=== PATIENT | male | born 1980 | race Caucasian/White ===

== ENCOUNTER 2017-02-25 07:24 | Inpatient (IN) | payer BC ==
[~2017-02-25] VITALS: Ht 185.4 cm; Wt 85.0 kg
[2017-02-25] VITALS (7 sets, daily range): BP systolic 117–138; BP diastolic 68–88; PULSE 84–110; RESP 18–28; TEMP 98.7–99.8; O2SAT 98–99
[2017-02-25] MEDS ORDERED: SODIUM CHLOR 0.9% 1000 ML INJ 1,000 ML IV ONE ×2 (07:45→11:00)
--- NOTE | 2017-02-25 07:55 | PD ---
HPI Chief Complaint: Oral / Dental Pain or Problem Time Seen by Provider: 07:38 Travel History International Travel<30 days: No Contact w/Intl Traveler<30days: No Traveled to known affect area: No History of Present Illness HPI 36 y/o male presents with swelling to his lower lip and redness down his chin with general ill feeling over the past couple of days. He states that he used IV drugs and he thinks last time was about 6 months ago. He states that he uses ecstasy more regularly. He states that the last time he followed physician was about 6 months ago when his dad who is a server cashier called in something for his arm. He denies any other concurrent complaints at this time but is a poor historian. PFSH Past Medical History Diminished Hearing: No Medical other: Yes (TMJ 2014, IV DRUG USE) Immunizations Current: No Tetanus Vaccination: Unknown Influenza Vaccination: Yes Past Surgical History Surgical History: No Previous Surgery Social History Alcohol Use: Yes Tobacco Use: Yes Substance Use: Yes (IV DRUG USE- HEROIN, COCAINE , MARIJUANA ) Allergies-Medications (Allergen,Severity, Reaction): Coded Allergies: Penicillins (Verified Allergy, Unknown, hives , 02/25/17) Reported Meds & Prescriptions Reported Meds & Active Scripts Active No Active Prescriptions or Reported Medications Review of Systems Except as stated in HPI: all other systems reviewed are Neg Physical Exam Narrative GENERAL: Well-nourished, well-developed patient. SKIN: Warm and dry. HEAD: Normocephalic EYES: No injection or drainage. ENT: No nasal drainage noted. Significant swelling to lower lip noted with redness going down anterior aspect of upper neck NECK: Supple, trachea midline. CARDIOVASCULAR: Tachycardic rate and regular rhythm RESPIRATORY: No increased effort. No accessory muscle use. GASTROINTESTINAL: Abdomen soft, non-tender, nondistended. EXTREMITIES: No edema. NEUROLOGICAL: Awake. Motor and sensory grossly within normal limits. Slurred speech. Data Data Last Documented VS Vital Signs Date Time Temp Pulse Resp B/P (MAP) Pulse Ox O2 Delivery O2 Flow Rate FiO2 02/25/17 09:00 93 18 117/68 (84) 99 02/25/17 07:30 99.8 Orders Orders Sepsis Workup Initiated (02/25/17 ) Complete Blood Count With Diff (02/25/17 07:45) Comprehensive Metabolic Panel (02/25/17 07:45) Prothrombin Time / Inr (Pt) (02/25/17 07:45) Act Partial Throm Time (Ptt) (02/25/17 07:45) Lactic Acid Sepsis Protocol (02/25/17 07:45) Magnesium (Mg) (02/25/17 07:45) Phosphorus (Po4) (02/25/17 07:45) Blood Culture (02/25/17 07:45) Chest, Single Ap (02/25/17 07:45) Ecg Monitoring (02/25/17 07:45) Iv Access Insert/Monitor (02/25/17 07:45) Oximetry (02/25/17 07:45) Sodium Chlor 0.9% 1000 Ml Inj (Ns 1000 M (02/25/17 07:45) Ct Soft Tiss Neck W Iv Cont (02/25/17 ) Drug Screen, Random Urine (02/25/17 07:53) Iohexol 350 Inj (Omnipaque 350 Inj) (02/25/17 08:42) Aztreonam Inj (Azactam Inj) (02/25/17 09:49) Metronidazole 500 Mg Inj (Flagyl 500 Mg (02/25/17 09:49) Vancomycin Inj (Vancomycin Inj) (02/25/17 09:49) Admit Order (Ed Use Only) (02/25/17 10:43) Labs Laboratory Tests Test 02/25/17 07:55 02/25/17 08:01 02/25/17 09:10 White Blood Count 11.8 TH/MM3 Red Blood Count 4.79 MIL/MM3 Hemoglobin 14.2 GM/DL Hematocrit 40.9 % Mean Corpuscular Volume 85.6 FL Mean Corpuscular Hemoglobin 29.6 PG Mean Corpuscular Hemoglobin Concent 34.6 % Red Cell Distribution Width 13.9 % Platelet Count 287 TH/MM3 Mean Platelet Volume 7.2 FL Neutrophils (%) (Auto) 61.9 % Lymphocytes (%) (Auto) 24.2 % Monocytes (%) (Auto) 12.6 % Eosinophils (%) (Auto) 0.9 % Basophils (%) (Auto) 0.4 % Neutrophils # (Auto) 7.3 TH/MM3 Lymphocytes # (Auto) 2.9 TH/MM3 Monocytes # (Auto) 1.5 TH/MM3 Eosinophils # (Auto) 0.1 TH/MM3 Basophils # (Auto) 0.1 TH/MM3 CBC Comment DIFF FINAL Differential Comment Prothrombin Time 11.5 SEC Prothromb Time International Ratio 1.0 RATIO Activated Partial Thromboplast Time 33.8 SEC Blood Urea Nitrogen 8 MG/DL Creatinine 0.95 MG/DL Random Glucose 108 MG/DL Total Protein 8.1 GM/DL Albumin 3.7 GM/DL Calcium Level 8.8 MG/DL Phosphorus Level 3.2 MG/DL Magnesium Level 1.9 MG/DL Alkaline Phosphatase 94 U/L Aspartate Amino Transf (AST/SGOT) 57 U/L Alanine Aminotransferase (ALT/SGPT) 134 U/L Total Bilirubin 1.0 MG/DL Sodium Level 135 MEQ/L Potassium Level 3.1 MEQ/L Chloride Level 97 MEQ/L Carbon Dioxide Level 30.3 MEQ/L Anion Gap 8 MEQ/L Estimat Glomerular Filtration Rate 89 ML/MIN Lactic Acid Level 1.1 mmol/L Urine Opiates Screen POS Urine Barbiturates Screen NEG Urine Amphetamines Screen POS Urine Benzodiazepines Screen NEG Urine Cocaine Screen POS Urine Cannabinoids Screen POS MDM Medical Decision Making Medical Screen Exam Complete: Yes Emergency Medical Condition: Yes Medical Record Reviewed: Yes (past history confirmed) Interpretation(s) CBC & BMP Diagram 02/25/17 07:55 Total Protein 8.1, Albumin 3.7, Calcium Level 8.8, Phosphorus Level 3.2, Magnesium Level 1.9, Alkaline Phosphatase 94, Aspartate Amino Transf (AST/SGOT) 57 H, Alanine Aminotransferase (ALT/SGPT) 134 H, Total Bilirubin 1.0 Last 24 hours Impressions Chest X-Ray 02/25/17 0745 Signed Impressions: Service Date/Time: Saturday, February 25, 2017 07:58 - CONCLUSION: The lungs are clear. Willy Barrera MD ct neck discussed with radiologist and he has soft tissue swelling without abscess or soft tissue gas, he has reactive lymph nodes Differential Diagnosis Abscess, sepsis, mass Narrative Course Will check blood work, CT imaging and monitor ed workup with facial cellulitis with ho ivda, patient with likely beginnings of abscess to his lower lip but this is not showing on CT as a drainable area, will admit to medicine for IV antibiotics and warm compresses and he will need to be monitored. He agrees to plan of care Sepsis Criteria SIRS Criteria (2 or more): Heart rate over 90, RR > 20 or PaCO2 < 32 Sepsis Criteria (SIRS+source): Infect source susp/known Criteria Outcome: Meets sepsis criteria Physician Communication Physician Communication resident team agrees to admit Diagnosis Primary Impression: Facial cellulitis Additional Impressions: Lip swelling Drug use Sepsis Qualified Codes: A41.9 - Sepsis, unspecified organism Admitting Information Admitting Physician Requests: Admit Scripts No Active Prescriptions or Reported Meds Fina Triplett MD Feb 25, 2017 07:55
--- NOTE | 2017-02-25 08:10 | RADRPT ---
EXAM DATE/TIME: 02/25/2017 07:58 [facility] COMPARISON: No previous studies available for comparison. INDICATIONS : Radiating neck pain from swollen lip. MEDICAL HISTORY : None. SURGICAL HISTORY : None. ENCOUNTER: Initial ACUITY: 3 days PAIN SCORE: 4/10 LOCATION: Bilateral neck. FINDINGS: A single view of the chest demonstrates the lungs to be symmetrically aerated without evidence of mas s, infiltrate or effusion. The cardiomediastinal contours are unremarkable. Osseous structures are intact. CONCLUSION: The lungs are clear. Willy Barrera MD on February 25, 2017 at 8:08 Board Certified Radiologist. This report was verified electronically.
[2017-02-25 08:12] LABS: AUTOMATED NEUTROPHIL # 7.3 TH/MM3 (1.8-7.7); BASOPHIL # 0.1 TH/MM3 (0-0.2); BASOPHIL % 0.4 % (0.0-2.0); EOSINOPHIL # 0.1 TH/MM3 (0-0.4); EOSINOPHIL % 0.9 % (0.0-4.0); HEMATOCRIT 40.9 % (39.0-51.0); HEMO FLAGS DIFF FINAL; LYMPH % 24.2 % (9.0-44.0); LYMPHOCYTE # 2.9 TH/MM3 (1.0-4.8); MEAN CELL VOLUME 85.6 FL (80.0-100.0); MEAN CORPUSCULAR HEMOGLOBIN 29.6 PG (27.0-34.0); MEAN CORPUSCULAR HGB CONC 34.6 % (32.0-36.0); MONO % 12.6 % (0.0-8.0); NEUT % 61.9 % (16.0-70.0); PLATELET COUNT 287 TH/MM3 (150-450); RED BLOOD COUNT 4.79 MIL/MM3 (4.50-5.90); RED CELL DISTRIBUTION WIDTH 13.9 % (11.6-17.2); WHITE BLOOD COUNT 11.8 TH/MM3 (4.0-11.0)
[2017-02-25 08:16] LABS: APTT (PATIENT) 33.8 SEC (24.3-30.1); PROTHROMBIN TIME - PATIENT 11.5 SEC (9.8-11.6)
[2017-02-25 08:21] LABS: ALT (GPT) 134 U/L (12-78); ANION GAP 8 MEQ/L (5-15); AST (GOT) 57 U/L (15-37); BICARBONATE 30.3 MEQ/L (21.0-32.0); BLOOD UREA NITROGEN 8 MG/DL (7-18); CHLORIDE 97 MEQ/L (98-107); GLOMERULAR FILTRATION RATE 89 ML/MIN (>89); MAGNESIUM 1.9 MG/DL (1.5-2.5); POTASSIUM 3.1 MEQ/L (3.5-5.1); SODIUM (NA) 135 MEQ/L (136-145)
[2017-02-25 08:27] LABS: ALKALINE PHOSPHATASE 94 U/L (45-117)
[2017-02-25] MEDS ORDERED: IOHEXOL 350 MG/ML 10 ML VIAL (for RAD DIAG) IVCONTRAST ONE (08:42)
--- NOTE | 2017-02-25 09:35 | RADRPT ---
EXAM DATE/TIME: 02/25/2017 08:41 [facility] COMPARISON: No previous studies available for comparison. INDICATIONS : Chin and lower lip pain and swelling for two days. IV CONTRAST: 70 cc Omnipaque 350 (iohexol) IV RADIATION DOSE: 14.28 CTDIvol (mGy) MEDICAL HISTORY : None SURGICAL HISTORY : None. ENCOUNTER: Initial ACUITY: 2 days PAIN SCALE: 7/10 LOCATION: Bilateral lower lip TECHNIQUE: Volumetric scanning of the neck was performed. Using automated exposure control and adjustment of th e mA and/or kV according to patient size, radiation dose was kept as low as reasonably achievable to obtain optimal diagnostic quality images. DICOM format image data is available electronically for r eview and comparison. FINDINGS: There is prominent soft tissue thickening in the region of the anterior mandible and extending to the right side with soft tissue thickening measuring up to 2.2 cm. No soft tissue gas and no radiopaque foreign bodies seen. The adjacent mandible is grossly intact without evidence of focal bony destruc tion or periosteal reaction. There are multiple prominent lateral compartment nodes, the largest is located in the right lateral c ompartment at the axial level of the thyroid cartilage and measures 1.6 cm. Nodes in the left neck m easure up to 9 mm. There are also 2 enlarged right submandibular nodes measuring up to 1.5 cm. Prevertebral soft tissues are normal thickness. The thyroid has a homogeneous pattern of enhancement . The oral and nasopharynx is grossly unremarkable. CONCLUSION: 1. Prominent soft tissue swelling anterior and to the right of the mandible without radiopaque foreig n body and without focal bony abnormality. 2. Enlarged lymph nodes in the right submandibular and right jugular chains. Willy Barrera MD on February 25, 2017 at 9:22 Board Certified Radiologist. This report was verified electronically.
[2017-02-25] MEDS ORDERED: VANCOMYCIN INJ 1,000 MG in SODIUM CHLOR 0.9% 250 ML INJ 250 ML IV STA (09:49)
[2017-02-25] MEDS ORDERED: metroNIDAZOLE 500 MG INJ 100 ML IV STA (09:49)
[2017-02-25] MEDS ORDERED: AZTREONAM INJ 2,000 MG in SODIUM CHLORIDE 0.9% INJ 100 ML IV STA (09:49)
--- NOTE | 2017-02-25 10:52 | HHI.HP ---
[facility] Service Family Medicine Primary Care Physician No Primary Care Physician Admission Diagnosis Diagnoses: International Travel<30 Days: No Contact w/Intl Traveler<30days: No Known Affected Area: No History of Present Illness Mr. Gould is a 36-year-old male with polysubstance abuse presenting to the ED with lower lip swelling. Patient states that over the last 2 days his lower lip has grown to "10 times its size." Over this timeframe he does state that the area has drained purulent fluid of "a little less than a tablespoon" intermittently. He does state that he does not "feel great," he denies any fevers, chills, shortness of breath, chest pain, or NVD. He denies any facial trauma, dental problems, or neck pain. He has an extensive substance abuse history as documented below in the social history. Otherwise he has no complaints and his only request is pain medication for his lips as they feel like they are "about to burst." (Alex Sotelo MD R2) Review of Systems Constitutional: DENIES: Fever, Weight gain, Weight loss, Chills, Dizziness Eyes: COMPLAINS OF: Photosensitivity, DENIES: Blurred vision Ears, nose, mouth, throat: DENIES: Vertigo, Throat pain, Running Nose, Epistaxis Respiratory: DENIES: Apneas, Cough, Shortness of breath Cardiovascular: DENIES: Chest pain, Palpitations, Syncope Gastrointestinal: DENIES: Abdominal pain, Constipation, Diarrhea, Nausea, Vomiting Genitourinary: DENIES: Dysuria, Penile Discharge Musculoskeletal: DENIES: Joint pain Integumentary: DENIES: Rash Hematologic/lymphatic: COMPLAINS OF: Lymphadenopathy Neurologic: DENIES: Headache Psychiatric: DENIES: Mood changes (Alex Sotelo MD R2) Past Family Social History Past Medical History Denies past medical history Past Surgical History Denies past surgical history (Alex Sotelo MD R2) Allergies: Coded Allergies: Penicillins (Verified Allergy, Unknown, hives , 02/26/17) Family History Mother - DM, otherwise heathy Father - healthy Brother - healthy Social History Currently living in [facility] with brother. 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 Tobacco - 20 year, 1ppd Alcohol - Last drink months ago, no history of withdrawal (room does smell of alcohol) Illicit drugs - As below Opiates -patient endorses "some type of pill" usage over the last 24 hours, does state "probably oxy or hydros" of unknown dosage, previous heroin addiction with last use 2 days ago via L forearm injection Cocaine -patient last used 24 hours ago, 4 lines via snorting Amphetamines - history of abuse, but is unaware of last known use, states cocaine was "probably laced with meth" Marijuana - previously used every day, currently 3-4 times a month Ecstasy - 2 days ago of unknown amount (Alex Sotelo MD R2) Physical Exam Vital Signs Vital Signs Date Time Temp Pulse Resp B/P (MAP) Pulse Ox O2 Delivery O2 Flow Rate FiO2 02/25/17 09:00 93 18 117/68 (84) 99 02/25/17 07:44 110 28 138/84 (102) 99 02/25/17 07:30 99.8 106 18 135/88 (104) 98 Physical Exam GENERAL: Well-nourished, well-developed disheveled male patient sitting on examining table with sunglasses on in no acute distress. SKIN: Multiple areas of excoriated skin patches on bilateral upper and lower extremities without drainage, erythema, or hemorrhage. No track noe appreciated upon exam. No edema. HEENT: Atraumatic, normocephalic with EOMI. Pupils slightly miotic and sluggishly reactive to light. Mucous membranes dry. No rhinorrhea. No JVD or thyroid abnormality appreciated. Lips: Significant lips swelling of the bottom lip with erythema and warmth extending to upper neck. Palpable lymphadenopathy. The right anterior chain and submandibular lymph nodes. No abscess appreciated upon palpation. No purulent drainage or hemorrhage at this time. Sensation and motor function intact. CARDIOVASCULAR: Tachycardic rate with regular rhythm. Difficult to assist for MGR. 2+ pulses in all 4 extremities. RESPIRATORY: Clear to auscultation bilaterally with no CRW. No increased work of breathing. GASTROINTESTINAL: Abdomen soft, non-tender, nondistended with positive bowel sounds. No hepatosplenomegaly appreciated. MUSCULOSKELETAL: Extremities without cyanosis or edema. No calf tenderness. NEUROLOGICAL: AAO 3. Cranial nerves II through XII intact.. Motor and sensory grossly within normal limits. Five out of 5 muscle strength in all muscle groups. Normal speech and judgment. Laboratory Laboratory Tests Test 02/25/17 07:55 02/25/17 08:01 02/25/17 09:10 White Blood Count 11.8 Red Blood Count 4.79 Hemoglobin 14.2 Hematocrit 40.9 Mean Corpuscular Volume 85.6 Mean Corpuscular Hemoglobin 29.6 Mean Corpuscular Hemoglobin Concent 34.6 Red Cell Distribution Width 13.9 Platelet Count 287 Mean Platelet Volume 7.2 Neutrophils (%) (Auto) 61.9 Lymphocytes (%) (Auto) 24.2 Monocytes (%) (Auto) 12.6 Eosinophils (%) (Auto) 0.9 Basophils (%) (Auto) 0.4 Neutrophils # (Auto) 7.3 Lymphocytes # (Auto) 2.9 Monocytes # (Auto) 1.5 Eosinophils # (Auto) 0.1 Basophils # (Auto) 0.1 CBC Comment DIFF FINAL Differential Comment Prothrombin Time 11.5 Prothromb Time International Ratio 1.0 Activated Partial Thromboplast Time 33.8 Blood Urea Nitrogen 8 Creatinine 0.95 Random Glucose 108 Total Protein 8.1 Albumin 3.7 Calcium Level 8.8 Phosphorus Level 3.2 Magnesium Level 1.9 Alkaline Phosphatase 94 Aspartate Amino Transf (AST/SGOT) 57 Alanine Aminotransferase (ALT/SGPT) 134 Total Bilirubin 1.0 Sodium Level 135 Potassium Level 3.1 Chloride Level 97 Carbon Dioxide Level 30.3 Anion Gap 8 Estimat Glomerular Filtration Rate 89 Lactic Acid Level 1.1 Urine Opiates Screen POS Urine Barbiturates Screen NEG Urine Amphetamines Screen POS Urine Benzodiazepines Screen NEG Urine Cocaine Screen POS Urine Cannabinoids Screen POS Date/Time Source Procedure Growth Status 02/25/17 08:00 Blood Peripheral Aerobic Blood Culture Pending Received 02/25/17 08:00 Blood Peripheral Anaerobic Blood Culture Pending Received (Alex Sotelo MD R2) Result Diagram: 02/25/17 0755 02/25/17 0755 Imaging Last 72 hours Impressions Chest X-Ray 02/25/17 0745 Signed Impressions: Service Date/Time: Saturday, February 25, 2017 07:58 - CONCLUSION: The lungs are clear. Willy Barrera MD (Alex Sotelo MD R2) Caprini VTE Risk Assessment Caprini VTE Risk Assessment: Mod/High Risk (score >= 2) Caprini Risk Assessment Model Point Value = 1 Point Value = 2 Point Value = 3 Point Value = 5 Age 41-60 Minor surgery BMI > 25 kg/m2 Swollen legs Varicose veins or History of unexplained or recurrent spontaneous Oral contraceptives or hormone replacement Sepsis (< 1 month) Serious lung disease, including pneumonia (< 1 month) Abnormal pulmonary function Acute myocardial infarction Congestive heart failure (< 1 month) History of inflammatory bowel disease Medical patient at bed rest Age 61-74 Arthroscopic surgery Major open surgery (> 45 min) Laparoscopic surgery (> 45 min) Malignancy Confined to bed (> 72 hours) Immobilizing plaster cast Central venous access Age >= 75 History of VTE Family history of VTE Factor V Leiden Prothrombin [id number] Lupus anticoagulant Anticardiolipin antibodies Elevated serum homocysteine Heparin-induced thrombocytopenia Other congenital or acquired thrombophilia Stroke (< 1 month) Elective arthroplasty Hip, pelvis, or leg fracture Acute spinal cord injury (< 1 month) Prophylaxis Regimen Total Risk Factor Score Risk Level Prophylaxis Regimen 0-1 Low Early ambulation 2 Moderate Order ONE of the following: *Sequential Compression Device (SCD) *Heparin 5000 units SQ BID 3-4 Higher Order ONE of the following medications: *Heparin 5000 units SQ TID *Enoxaparin/Lovenox 40 mg SQ daily (WT < 150 kg, CrCl > 30 mL/min) *Enoxaparin/Lovenox 30 mg SQ daily (WT < 150 kg, CrCl > 10-29 mL/min) *Enoxaparin/Lovenox 30 mg SQ BID (WT < 150 kg, CrCl > 30 mL/min) AND/OR *Sequential Compression Device (SCD) 5 or more Highest Order ONE of the following medications: *Heparin 5000 units SQ TID (Preferred with Epidurals) *Enoxaparin/Lovenox 40 mg SQ daily (WT < 150 kg, CrCl > 30 mL/min) *Enoxaparin/Lovenox 30 mg SQ daily (WT < 150 kg, CrCl > 10-29 mL/min) *Enoxaparin/Lovenox 30 mg SQ BID (WT < 150 kg, CrCl > 30 mL/min) AND *Sequential Compression Device (SCD) (Alex Sotelo MD R2) Assessment and Plan Assessment and Plan Mr. Gould is a 36-year-old male with polysubstance abuse admitted for facial cellulitis of his lower lip. Code Status FULL Discussed Condition With Dr. Triplett, ER physician (Alex Sotelo MD R2) Attending Attestation Patient seen and examined. Case reviewed and discussed with the resident team. Agree with plan of care as discussed with me and documented in the resident note. Pt seen on admission in his hospital room. He reported that "a lot of pus has drained from my lip and I'm feeling better". He had a friend in the room with him. I encouraged him to get his antibiotics and finish them as his lip was extremely swollen. (Ginny Galan MD) Problem List: (1) Facial cellulitis ICD Codes: L03.211 - Cellulitis of face Status: Acute Plan: Patient currently admitted for purulent, rapidly expanding facial cellulitis not meeting SIRS criteria currently. Patient to be treated with vancomycin, levofloxacin, and metronidazole per up-to-date. Imaging/Labs: -Neck CT: Prominent soft tissue swelling of the anterior and right side of the mandible without radiopaque foreign body or bony abnormality. Large lymph nodes in the right submandibular and right jugular chains. -Chest x-ray: Negative exam -CBC: WBC 11.8 without left shift -Lactic acid: 1.1 -Blood cultures 2: Pending -Warm compresses to affected area -No drainable abscess appreciated on exam, plan to culture with any purulent drainage Medications: -Vancomycin 1 g twice a day, pharmacy consulted -Levofloxacin 750 mg daily -Metronidazole 500 mg every 8 hours -Tylenol when necessary for fever -Ibuprofen for pain 1-5, Hydrocodone 5 mg for pain 6-10, Toradol when necessary for breakthrough pain -1 L normal saline bolus given in ER (2) Polysubstance abuse ICD Codes: F19.10 - Other psychoactive substance abuse, uncomplicated Status: Acute Plan: Patient with polysubstance abuse as documented above. -UDS: Positive for opiates, amphetamines, cocaine, and marijuana -CMP: Potassium 3.1, AST 57, ALT 134 -Coagulation: PT 11.5, INR 1.0, PTT 33.8 -Alcohol level: Pending -Avoid all beta blockers -Continue to monitor for signs of withdrawal -Seizure precautions ordered -CIWA protocol ordered -Naloxone ordered as needed -Multivitamin, thiamine, and B12 ordered -Nicotine patch 14 mg, to be changed daily per patient request (3) History of MRSA infection ICD Codes: Z86.14 - Personal history of Methicillin resistant Staphylococcus aureus infection Status: Chronic Plan: Patient endorses previous history of MRSA infection of right arm -Patient placed on isolation (4) Hypokalemia ICD Codes: E87.6 - Hypokalemia Status: Acute Plan: Patient found to be hypokalemic without hypomagnesemia on admission -CMP: Potassium 3.1, magnesium 1.9 -Repeat potassium level at 1900 Medications: -Potassium chloride 40 mEq 1 (5) Liver function abnormality ICD Codes: K76.89 - Other specified diseases of liver Status: Acute Plan: Patient found to have elevated LFTs on admission likely related to polysubstance abuse -CMP: AST 57, ALT 134, creatinine 0.95 -Coagulation studies: PT 11.5, INR 1.0, PTT 33.8 -Alcohol level: pending -Patient agreeable to HIV and hepatitis screening, ordered (6) Nutrition, metabolism, and development symptoms ICD Codes: R63.8 - Other symptoms and signs concerning food and fluid intake Status: Acute Plan: Diet: Regular as tolerated Fluids: 1 L normal saline given in ER, tolerating oral fluids Electrolytes: Hypokalemic, replaced Prophylaxis: Zofran when necessary for nausea/vomiting, Clonidine when necessary for BP greater than 180/110, Ranitidine when necessary for reflux Case management and physical therapy consulted (7) No contraindication to deep vein thrombosis (DVT) prophylaxis ICD Codes: Z78.9 - Other specified health status Status: Acute Plan: -Heparin 5000 units every 8 hours -SCD/TEDs (Alex Sotelo MD R2) Physician Certification 2 Midnight Certification Type: Admission for Inpatient Services Order for Inpatient Services The services are ordered in accordance with Medicare regulations or non- Medicare payer requirements, as applicable. In the case of services not specified as inpatient-only, they are appropriately provided as inpatient services in accordance with the 2-midnight benchmark. Estimated LOS (days): 3 3 days is the estimated time the patient will need to remain in the hospital, assuming treatment plan goals are met and no additional complications. Post-Hospital Plan: Home (Alex Sotelo MD R2) Alex Sotelo MD R2 Feb 25, 2017 10:52 Ginny Galan MD Feb 27, 2017 14:03
[2017-02-25] MEDS ORDERED: LEVOFLOXACIN 750 MG PREMIX INJ 150 ML IV SCH (11:00)
[2017-02-25] MEDS ORDERED: IBUPROFEN 400 MG TAB PO PRN (11:00)
[2017-02-25] MEDS ORDERED: ACETAMINOPHEN 500 MG CPLT PO PRN (11:00)
[2017-02-25] MEDS ORDERED: SODIUM CHLORIDE 0.9% FLUSH 10 ML FLUSH IV FLUSH PRN (11:00)
[2017-02-25] MEDS ORDERED: KETOROLAC TROMETHAMINE 30 MG/ML (IVP) VIAL IVP PRN (11:00)
[2017-02-25] MEDS ORDERED: POTASSIUM CHLORIDE 10 MEQ CONTROLLED RELEASE TAB PO ONE (11:00)
[2017-02-25] MEDS ORDERED: Vancomycin Consult Pharmacy 1 EA OTHER SCH (11:00)
[2017-02-25] MEDS ORDERED: LORazepam 2 MG TAB PO PRN (11:45)
[2017-02-25] MEDS ORDERED: FLUMAZENIL 0.5 MG/5 ML VIAL IV PUSH PRN (11:45)
[2017-02-25] MEDS ORDERED: LORazepam 2 MG/ML VIAL IV PUSH PRN ×4 (11:45)
[2017-02-25] MEDS ORDERED: NALOXONE HCL 0.4 MG/ML AMP IV PUSH PRN (11:45)
[2017-02-25] MEDS ORDERED: LORazepam 1 MG TAB PO PRN (11:45)
[2017-02-25] MEDS ORDERED: THIAMINE HCL 100 MG TAB PO SCH (11:45)
[2017-02-25] MEDS ORDERED: MULTIVITAMINS/MINERALS THERAPEUTIC TAB PO SCH (11:45)
[2017-02-25] MEDS ORDERED: FOLIC ACID 1 MG TAB PO SCH (11:45)
[2017-02-25] MEDS ORDERED: ONDANSETRON HCL 4 MG/2 ML VIAL IV PUSH PRN (11:45)
[2017-02-25] MEDS ORDERED: cloNIDine HCL 0.1 MG TAB PO PRN (12:00)
[2017-02-25] MEDS ORDERED: FAMOTIDINE 20 MG TAB PO PRN (12:00)
[2017-02-25] MEDS ORDERED: NICOTINE 14 MG/24 HR PATCH T-DERMAL SCH (12:00)
[2017-02-25] MEDS: HEPARIN SODIUM - SQ 10,000 UNITS/ML VIAL SQ SCH ×2 (12:09→18:26)
[2017-02-25] MEDS: ACETAMINOPHEN/HYDROcodone 325 MG/5 MG TAB PO PRN ×3 (12:10→23:29)
[2017-02-25] MEDS: metroNIDAZOLE 500 MG INJ 100 ML IV SCH ×2 (13:00→21:48)
[2017-02-25 15:39] LABS: BLOOD, URINE NEG (NEG); COMMENT (UR) CULT NOT INDICATED; CULTURE IF INDICATED CULT NOT INDICATED; GLUCOSE,URINE NEG (NEG); KETONE, URINE NEG (NEG); MUCUS URINE FEW /lpf (OCC); NITRITE,URINE NEG (NEG); PH, URINE 6.5 (5.0-8.5); URINE COLOR YELLOW (YELLW/STRAW)
[2017-02-25] MEDS ORDERED: REMOVE OLD PATCH T-DERMAL SCH (21:00)
[2017-02-25] MEDS ORDERED: SODIUM CHLORIDE 0.9% FLUSH 10 ML FLUSH IV FLUSH SCH (21:00)
[2017-02-25] MEDS ORDERED: VANCOMYCIN INJ 1,250 MG in SODIUM CHLOR 0.9% 250 ML INJ 250 ML IV SCH (22:00)
[2017-02-25] MEDS ORDERED: VANCOMYCIN INJ 1,000 MG in SODIUM CHLOR 0.9% 250 ML INJ 250 ML IV ONE (22:00)
[2017-02-26 00:46] VITALS: BP 146/81; PULSE 81; RESP 18; TEMP 98.2; O2SAT 100
[2017-02-26] MEDS: HEPARIN SODIUM - SQ 10,000 UNITS/ML VIAL SQ SCH (04:09)
[2017-02-26] MEDS: metroNIDAZOLE 500 MG INJ 100 ML IV SCH (04:10)
[2017-02-26] MEDS: ACETAMINOPHEN/HYDROcodone 325 MG/5 MG TAB PO PRN (04:11)
[2017-02-26 04:30] VITALS: BP 129/80; PULSE 70; RESP 18; TEMP 98.4; O2SAT 98
--- NOTE | 2017-02-26 05:45 | PD.AMA ---
Against Medical Advice Note Discharge Disposition: Against Medical Advice AMA Statement Patient Jam Gould has decided to leave the hospital against medical advice. This patient has the capacity to refuse care and understands the risks of leaving, including permanent disability and/or per nursing staff. 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 Alex Sotelo MD R2 Feb 26, 2017 05:45
[2017-02-26] MEDS ORDERED: INFLUENZA VIRUS VACCINE (QUADRIVALENT) 0.5 ML SYR IM ONE (10:00)
[2017-02-26] MEDS ORDERED: PNEUMOCOCCAL POLYVALENT INJ 25 MCG/0.5 ML SYR IM ONE (10:00)
[2017-02-26] MEDS ORDERED: PHARMACY ORDERED LAB ONE (21:45)
== END 2017-02-26 05:03 | disposition left against medical advice (07) | DRG 603 ==
LOC: NEPE 07:24 → NEDA 10:45 → N05A 12:57
PROVIDERS: ADMIT Family Medicine; ATTEND Family Medicine
DX: L03.211 Cellulitis of face (principal); K13.0 Diseases of lips; F11.10 Opioid abuse, uncomplicated; F14.10 Cocaine abuse, uncomplicated; F15.10 Other stimulant abuse, uncomplicated; F12.10 Cannabis abuse, uncomplicated; E87.6 Hypokalemia; R79.89 Other specified abnormal findings of blood chemistry; F17.210 Nicotine dependence, cigarettes, uncomplicated; Z86.14 Personal history of Methicillin resistant Staphylococcus aureus infection; Z91.19 Patient's noncompliance with other medical treatment and regimen; Z88.0 Allergy status to penicillin
CPT/HCPCS: 70491; 71010; 80053; 80074; 80307; 81001; 83605; 83735; 84100; 84132; 85025; 85610; 85730; 86703; 87040; 96361; 96365; J1644; J1885; J1956; J3370; J7030; J7050; Q9967

== ENCOUNTER 2017-02-26 12:35 | Inpatient (IN) | payer BC ==
[~2017-02-26] VITALS: Ht 185.4 cm; Wt 76.0 kg
[2017-02-26 13:14] VITALS: BP 136/78; PULSE 94; RESP 16; TEMP 98.2; O2SAT 100
[2017-02-26] MEDS ORDERED: VANCOMYCIN INJ 1,000 MG in SODIUM CHLOR 0.9% 250 ML INJ 250 ML IV ONE (13:45)
--- NOTE | 2017-02-26 13:52 | PD ---
HPI Chief Complaint: Edema Time Seen by Provider: 13:30 Travel History International Travel<30 days: No Contact w/Intl Traveler<30days: No Traveled to known affect area: No History of Present Illness HPI This patient left AGAINST MEDICAL ADVICE yesterday from the hospital. He comes back today wanting to be readmitted. He was admitted for rapidly progressive facial infection, primarily lower lip. Patient is a polysubstance abuser including IV drug abuse. Severity is moderate. He reports slight improvement in the swelling of his lower lip from yesterday. It does drain at times. No alleviating factors. Duration one week. Symptoms exacerbated by his noncompliance. PFSH Past Medical History Cancer: No Cardiovascular Problems: No Diminished Hearing: No Endocrine: No Genitourinary: No Immune Disorder: No Musculoskeletal: No Neurologic: No Psychiatric: No Reproductive: No Respiratory: No Immunizations Current: No Past Surgical History Surgical History: No Previous Surgery AICD: No Arteriovenous Shunt: No Insulin Pump: No Joint Replacement: No Pacemaker: No Other Surgery: No Social History Alcohol Use: Yes (social) Tobacco Use: Yes (1 ppd) Substance Use: Yes (marijuana, cocaine) Allergies-Medications (Allergen,Severity, Reaction): Coded Allergies: Penicillins (Verified Allergy, Unknown, hives , 02/26/17) Reported Meds & Prescriptions Reported Meds & Active Scripts Active No Active Prescriptions or Reported Medications Review of Systems General / Constitutional: No: Fever Eyes: No: Visual changes HENT: No: Headaches Cardiovascular: No: Chest Pain or Discomfort Respiratory: No: Shortness of Breath Gastrointestinal: No: Abdominal Pain Genitourinary: No: Dysuria Musculoskeletal: No: Pain Skin: No Rash Neurologic: No: Weakness Psychiatric: Positive: Substance Abuse, No: Depression Endocrine: No: Polydipsia Hematologic/Lymphatic: No: Easy Bruising Physical Exam Narrative GENERAL: Disheveled well-developed patient in no apparent distress. SKIN: Focused skin assessment reveals no rash and nodules. Skin is Warm and dry. HEAD: Atraumatic. Normocephalic. EYES: Pupils equal and round. No scleral icterus. No injection or drainage. ENT: No nasal bleeding or discharge. Mucous membranes pink and moist. Lower lip is significantly swollen diffusely. No swelling of tongue or uvula. Lower lip is crusted with a bit of yellow pus drainage. NECK: Trachea midline. No JVD. CARDIOVASCULAR: Regular rate and rhythm. No murmur appreciated. RESPIRATORY: No accessory muscle use. Clear to auscultation. Breath sounds equal bilaterally. GASTROINTESTINAL: Abdomen soft, non-tender, nondistended. Hepatic and splenic margins not palpable. MUSCULOSKELETAL: No obvious deformities. No clubbing. No cyanosis. No edema. NEUROLOGICAL: Awake and alert. No obvious cranial nerve deficits. Motor grossly within normal limits. Normal speech. PSYCHIATRIC: Appropriate mood and affect; insight and judgment poor . Data Data Last Documented VS Vital Signs Date Time Temp Pulse Resp B/P (MAP) Pulse Ox O2 Delivery O2 Flow Rate FiO2 02/26/17 13:17 Room Air 02/26/17 13:14 98.2 94 16 136/78 (97) 100 Orders Orders Vancomycin Inj (Vancomycin Inj) (02/26/17 13:45) Iv Access Insert/Monitor (02/26/17 13:43) Admit Order (Ed Use Only) (02/26/17 15:27) MDM Medical Decision Making Medical Screen Exam Complete: Yes Emergency Medical Condition: Yes Medical Record Reviewed: Yes Differential Diagnosis Facial infection, abscess, angioedema Narrative Course I have reviewed the patient's electronic medical record. Reviewed his admission history and physical from yesterday IV placed I gave him 1 g IV vancomycin Patient still has significant lip swelling. Certainly looks to be some degree of infection but also may have a component of angioedema. Difficult to say exactly. With his history of IV drug abuse he is at risk for all manner of things. I spoke with the medical residents who took care of this patient up to this morning but they have refused to take care of him any further I spoke with hospitalist who will admit Diagnosis Primary Impression: Facial infection Additional Impressions: Angioedema Qualified Codes: T78.3XXD - Angioneurotic edema, subsequent encounter Polysubstance abuse Admitting Information Admitting Physician Requests: Admit Scripts No Active Prescriptions or Reported Meds Disposition: 01 DISCHARGE HOME Ralph Alejandro MD Feb 26, 2017 13:52
[2017-02-26 15:00] VITALS: BP 146/91; PULSE 74; RESP 14; O2SAT 100
[2017-02-26 16:00] VITALS: BP 114/70; PULSE 76; RESP 12; O2SAT 100
[2017-02-26] MEDS ORDERED: BISACODYL 10 MG SUPP RECTAL PRN (16:45)
[2017-02-26] MEDS ORDERED: ACETAMINOPHEN 325 MG TAB PO PRN (16:45)
[2017-02-26] MEDS ORDERED: NALOXONE HCL 0.4 MG/ML AMP IV PUSH PRN (16:45)
[2017-02-26] MEDS ORDERED: MAGNESIUM HYDROXIDE SUSP 30 ML CUP PO PRN (16:45)
[2017-02-26] MEDS ORDERED: SENNOSIDES 8.6 MG TAB PO PRN (16:45)
[2017-02-26] MEDS ORDERED: ONDANSETRON HCL 4 MG/2 ML VIAL IVP PRN (16:45)
[2017-02-26] MEDS ORDERED: Vancomycin Consult Pharmacy 1 EA OTHER SCH (16:45)
[2017-02-26] MEDS ORDERED: LACTULOSE SYRUP 20 GM/30 ML CUP PO PRN (16:45)
[2017-02-26] MEDS ORDERED: VANCOMYCIN INJ 1,251 MG in SODIUM CHLORID 0.9% 500 ML INJ 500 ML IV SCH (16:45)
[2017-02-26] MEDS: HEPARIN SODIUM - SQ 10,000 UNITS/ML VIAL SQ SCH (17:00)
[2017-02-26 18:15] VITALS: BP 120/89; PULSE 73; RESP 19; TEMP 97.7; O2SAT 100
--- NOTE | 2017-02-26 18:29 | HHI.HP ---
[facility] No Primary Care Physician Admission Diagnosis facial infection/angioedema Diagnoses: Chief Complaint: Facial Edema/infection Travel History International Travel<30 Days: No Contact w/Intl Traveler <30 Da: No Traveled to Known Affected Are: No History of Present Illness this is a pleasant 36 y/o Male who was admitted yesterday by the Residency program due to lower lip swelling, with diagnosis of Facial Cellulitis/Angioedema, the patient states this started three days ago now with purulent drainage, he states he is pretty healthy and is taking pain medicine given here, he denies any fevers, chills, shortness of breath, chest pain, or NVD. He denies any facial trauma, dental problems, or neck pain. He has an extensive substance abuse history as documented below in the social history. seen in his bedroom, no other complaint. he signed AMA yesterday and came back today. Review of Systems Constitutional: DENIES: Fever, Chills, Change in appetite Endocrine: DENIES: Heat/cold intolerance Eyes: DENIES: Blurred vision, Eye pain Except as stated in HPI: all other systems reviewed are Neg Past Family Social History Past Medical History Denies past medical history Past Surgical History Denies past surgical history Reported Medications Reported Meds & Active Scripts Active No Active Prescriptions or Reported Medications Allergies: Coded Allergies: Penicillins (Verified Allergy, Unknown, hives , 02/26/17) Active Ordered Medications Current Medications Medications (Trade) Dose Ordered Sig/Pat Route Start Time Stop Time Status Last Admin Sodium Chloride 1,000 ml @ 100 mls/hr Q10H IV 02/26/17 17:00 (Tylenol) 650 mg Q4H PRN PO 02/26/17 16:45 (Zofran Inj) 4 mg Q6H PRN IVP 02/26/17 16:45 (Heparin Inj) 5,000 units Q8H SQ 02/26/17 17:00 02/26/17 17:00 (Narcan Inj) 0.4 mg UNSCH PRN IV PUSH 02/26/17 16:45 (Alissa-Colace) 1 tab BID PO 02/26/17 21:00 (Milk Of Magnesia Liq) 30 ml Q12H PRN PO 02/26/17 16:45 (Senokot) 17.2 mg Q12H PRN PO 02/26/17 16:45 (Dulcolax Supp) 10 mg DAILY PRN RECTAL 02/26/17 16:45 (Lactulose Liq) 30 ml DAILY PRN PO 02/26/17 16:45 Pharmacy Profile Note 0 ml @ 0 mls/hr UNSCH OTHER 02/26/17 16:45 (Ultram) 50 mg Q6H PRN PO 02/26/17 16:45 Vancomycin HCl 1000 mg/Sodium Chloride 250 ml @ 250 mls/hr Q8HR IV 02/26/17 22:00 Miscellaneous Information SPECIFIC LAB TO BE DRAWN:[facility]... ONCE ONCE .XX 02/27/17 13:45 02/27/17 13:46 Family History Mother with DM II and Breast Cancer Social History Lives with his Brother, Tobacco dependence one pack daily, abuses Cocaine, drinks alcohol occasional Amphetamines - history of abuse, but is unaware of last known use, states cocaine was "probably laced with meth" Marijuana - previously used every day, currently 3-4 times a month Ecstasy - 2 days ago of unknown amount Physical Exam Vital Signs Vital Signs Date Time Temp Pulse Resp B/P (MAP) Pulse Ox O2 Delivery O2 Flow Rate FiO2 02/26/17 17:00 02/26/17 16:00 76 12 114/70 (85) 100 Room Air 02/26/17 15:00 74 14 146/91 (109) 100 Room Air 02/26/17 13:17 Room Air 02/26/17 13:14 98.2 94 16 136/78 (97) 100 Room Air Physical Exam GENERAL: This is a well-nourished, well-developed patient, in no apparent distress. SKIN: ultiple areas of excoriated skin patches on bilateral upper and lower extremities with purulent drainage. HEAD: Atraumatic. Normocephalic. No temporal or scalp tenderness. EYES: Pupils equal round and reactive. Extraocular motions intact. No scleral icterus. No injection or drainage. ENT: Nose without bleeding, purulent drainage or septal hematoma. Throat without erythema, tonsillar hypertrophy or exudate. Uvula midline. Airway patent. NECK: Trachea midline. No JVD or lymphadenopathy. Supple, nontender, no meningeal signs. CARDIOVASCULAR: Regular rate and rhythm without murmurs, gallops, or rubs. RESPIRATORY: Clear to auscultation. Breath sounds equal bilaterally. No wheezes , rales, or rhonchi. GASTROINTESTINAL: Abdomen soft, non-tender, nondistended. No hepato-splenomegaly , or palpable masses. No guarding. MUSCULOSKELETAL: Extremities without clubbing, cyanosis, or edema. No joint tenderness, effusion, or edema noted. No calf tenderness. Negative Homans sign bilaterally. NEUROLOGICAL: Awake and alert. Cranial nerves II through XII intact. Motor and sensory grossly within normal limits. Five out of 5 muscle strength in all muscle groups. Normal speech. Caprini VTE Risk Assessment Caprini VTE Risk Assessment: Mod/High Risk (score >= 2) Caprini Risk Assessment Model Point Value = 1 Point Value = 2 Point Value = 3 Point Value = 5 Age 41-60 Minor surgery BMI > 25 kg/m2 Swollen legs Varicose veins or History of unexplained or recurrent spontaneous Oral contraceptives or hormone replacement Sepsis (< 1 month) Serious lung disease, including pneumonia (< 1 month) Abnormal pulmonary function Acute myocardial infarction Congestive heart failure (< 1 month) History of inflammatory bowel disease Medical patient at bed rest Age 61-74 Arthroscopic surgery Major open surgery (> 45 min) Laparoscopic surgery (> 45 min) Malignancy Confined to bed (> 72 hours) Immobilizing plaster cast Central venous access Age >= 75 History of VTE Family history of VTE Factor V Leiden Prothrombin [id number] Lupus anticoagulant Anticardiolipin antibodies Elevated serum homocysteine Heparin-induced thrombocytopenia Other congenital or acquired thrombophilia Stroke (< 1 month) Elective arthroplasty Hip, pelvis, or leg fracture Acute spinal cord injury (< 1 month) Prophylaxis Regimen Total Risk Factor Score Risk Level Prophylaxis Regimen 0-1 Low Early ambulation 2 Moderate Order ONE of the following: *Sequential Compression Device (SCD) *Heparin 5000 units SQ BID 3-4 Higher Order ONE of the following medications: *Heparin 5000 units SQ TID *Enoxaparin/Lovenox 40 mg SQ daily (WT < 150 kg, CrCl > 30 mL/min) *Enoxaparin/Lovenox 30 mg SQ daily (WT < 150 kg, CrCl > 10-29 mL/min) *Enoxaparin/Lovenox 30 mg SQ BID (WT < 150 kg, CrCl > 30 mL/min) AND/OR *Sequential Compression Device (SCD) 5 or more Highest Order ONE of the following medications: *Heparin 5000 units SQ TID (Preferred with Epidurals) *Enoxaparin/Lovenox 40 mg SQ daily (WT < 150 kg, CrCl > 30 mL/min) *Enoxaparin/Lovenox 30 mg SQ daily (WT < 150 kg, CrCl > 10-29 mL/min) *Enoxaparin/Lovenox 30 mg SQ BID (WT < 150 kg, CrCl > 30 mL/min) AND *Sequential Compression Device (SCD) Assessment and Plan Assessment and Plan 1. Facial Cellulitis/Angioedema given Vancomycin will add Clindamycin and follow blood cultures -Neck CT: Prominent soft tissue swelling of the anterior and right side of the mandible without radiopaque foreign body or bony abnormality. Large lymph nodes in the right submandibular and right jugular chains. -Chest x-ray: Negative exam 2. Polysubstance Abuse UDS taken yesterday was positive for Opiates, Amphetamines, Cocaine and Marijuana, CIWA protocol, Nicotine patch. 3. History of MRSA infection will need isolation. 4. Hepatitis C/Liver dysfunction. DVT prophylaxis with Heparin Code Status Full code. Discussed Condition With Patient. Tee Aguila MD Feb 26, 2017 18:29
[2017-02-26] MEDS ORDERED: LORazepam 2 MG TAB PO PRN (18:30)
[2017-02-26] MEDS ORDERED: LORazepam 2 MG/ML VIAL IV PUSH PRN ×4 (18:30)
[2017-02-26] MEDS ORDERED: LORazepam 1 MG TAB PO PRN (18:30)
[2017-02-26] MEDS ORDERED: FLUMAZENIL 0.5 MG/5 ML VIAL IV PUSH PRN (18:30)
[2017-02-26] MEDS: traMADol HCL 50 MG TAB PO PRN (18:54)
[2017-02-26 20:00] VITALS: BP 116/78; PULSE 70; RESP 20; TEMP 98.4; O2SAT 99
[2017-02-26] MEDS ORDERED: CLINDAMYCIN 600 MG PREMIX 50 ML IV SCH ×3 (20:00→20:15)
[2017-02-26] MEDS: MULTIVITAMIN INJ 10 ML, FOLIC ACID INJ 1 MG in SODIUM CHLORID 0.9% 500 ML INJ 500 ML IV SCH (20:57)
[2017-02-26] MEDS: DOCUSATE SODIUM 50 MG/SENNA 8.6 MG TAB PO SCH (20:58)
[2017-02-26] MEDS: SODIUM CHLOR 0.9% 1000 ML INJ 1,000 ML IV SCH (20:58)
[2017-02-27] VITALS (10 sets, daily range): BP systolic 114–137; BP diastolic 67–88; PULSE 62–107; RESP 18–20; TEMP 98.2–99.1; O2SAT 99–100
[2017-02-27] MEDS: CLINDAMYCIN 600 MG PREMIX 50 ML IV SCH ×4 (00:22→20:21)
[2017-02-27] MEDS: VANCOMYCIN 1,000 MG/NS 250 ML IV SCH ×6 (00:24→14:00)
[2017-02-27] MEDS: HEPARIN SODIUM - SQ 10,000 UNITS/ML VIAL SQ SCH ×3 (01:00→17:00)
[2017-02-27] MEDS: THIAMINE INJ 100 MG in SODIUM CHLORIDE 0.9% INJ 100 ML IV SCH ×2 (03:36→23:53)
[2017-02-27 07:27] LABS: AUTOMATED NEUTROPHIL # 2.5 TH/MM3 (1.8-7.7); BASOPHIL % 0.5 % (0.0-2.0); EOSINOPHIL # 0.6 TH/MM3 (0-0.4); HEMATOCRIT 36.7 % (39.0-51.0); HEMO FLAGS DIFF FINAL; LYMPH % 44.4 % (9.0-44.0); LYMPHOCYTE # 3.1 TH/MM3 (1.0-4.8); MEAN CELL VOLUME 85.2 FL (80.0-100.0); MEAN CORPUSCULAR HEMOGLOBIN 30.1 PG (27.0-34.0); MEAN CORPUSCULAR HGB CONC 35.3 % (32.0-36.0); MONO % 11.7 % (0.0-8.0); NEUT % 35.4 % (16.0-70.0); PLATELET COUNT 302 TH/MM3 (150-450); RED CELL DISTRIBUTION WIDTH 14.1 % (11.6-17.2)
[2017-02-27 07:50] LABS: BICARBONATE 28.3 MEQ/L (21.0-32.0); POTASSIUM 3.6 MEQ/L (3.5-5.1)
[2017-02-27] MEDS: REMOVE OLD PATCH T-DERMAL SCH (09:00)
--- NOTE | 2017-02-27 09:40 | HHI.PR ---
Subjective Remarks this is a pleasant 36 y/o Male who was admitted yesterday by the Residency program due to lower lip swelling, with diagnosis of Facial Cellulitis/Angioedema, the patient states this started three days ago now with purulent drainage, he states he is pretty healthy and is taking pain medicine given here, he denies any fevers, chills, shortness of breath, chest pain, or NVD. He denies any facial trauma, dental problems, or neck pain. He has an extensive substance abuse history as documented below in the social history. seen in his bedroom, no other complaint. he signed AMA yesterday and came back today. 02/27: Seen in his bedroom, improving fast will follow in am tomorrow if continue improving his condition will discharge with Clindamycin, blood culture negative in one day. continue Vancomycin and Clindamycin today no nausea, vomit or diarrhea. Objective Vital Signs Date Time Temp Pulse Resp B/P (MAP) Pulse Ox O2 Delivery O2 Flow Rate FiO2 02/27/17 07:34 98.2 67 18 132/74 (93) 100 02/27/17 04:00 98.8 72 20 131/82 (98) 99 02/27/17 00:00 98.5 66 20 130/88 (102) 99 02/26/17 20:00 98.4 70 20 116/78 (91) 99 02/26/17 18:15 97.7 73 19 120/89 (99) 100 02/26/17 17:00 02/26/17 16:00 76 12 114/70 (85) 100 Room Air 02/26/17 15:00 74 14 146/91 (109) 100 Room Air 02/26/17 13:17 Room Air 02/26/17 13:14 98.2 94 16 136/78 (97) 100 Room Air I/O 02/26/17 02/26/17 02/26/17 02/27/17 02/27/17 02/27/17 07:00 15:00 23:00 07:00 15:00 23:00 Intake Total 239 ml 1291 ml Balance 239 ml 1291 ml Intake IV Total 239 ml 1291 ml # Voids 2 Result Diagram: 02/27/1744 02/27/1744 Imaging No Imaging studies. Procedures None Other Results Laboratory Tests Test 02/27/17 06:44 White Blood Count 7.0 TH/MM3 Red Blood Count 4.30 MIL/MM3 Hemoglobin 13.0 GM/DL Hematocrit 36.7 % Mean Corpuscular Volume 85.2 FL Mean Corpuscular Hemoglobin 30.1 PG Mean Corpuscular Hemoglobin Concent 35.3 % Red Cell Distribution Width 14.1 % Platelet Count 302 TH/MM3 Mean Platelet Volume 7.7 FL Neutrophils (%) (Auto) 35.4 % Lymphocytes (%) (Auto) 44.4 % Monocytes (%) (Auto) 11.7 % Eosinophils (%) (Auto) 8.0 % Basophils (%) (Auto) 0.5 % Neutrophils # (Auto) 2.5 TH/MM3 Lymphocytes # (Auto) 3.1 TH/MM3 Monocytes # (Auto) 0.8 TH/MM3 Eosinophils # (Auto) 0.6 TH/MM3 Basophils # (Auto) 0.0 TH/MM3 CBC Comment DIFF FINAL Differential Comment Blood Urea Nitrogen 6 MG/DL Creatinine 0.76 MG/DL Random Glucose 89 MG/DL Calcium Level 8.1 MG/DL Sodium Level 144 MEQ/L Potassium Level 3.6 MEQ/L Chloride Level 111 MEQ/L Carbon Dioxide Level 28.3 MEQ/L Anion Gap 5 MEQ/L Estimat Glomerular Filtration Rate 115 ML/MIN Objective Remarks GENERAL: This is a well-nourished, well-developed patient, in no apparent distress. SKIN: ultiple areas of excoriated skin patches on bilateral upper and lower extremities with purulent drainage. HEAD: Atraumatic. Normocephalic. No temporal or scalp tenderness. EYES: Pupils equal round and reactive. Extraocular motions intact. No scleral icterus. No injection or drainage. ENT: Nose without bleeding, purulent drainage or septal hematoma. Throat without erythema, tonsillar hypertrophy or exudate. Uvula midline. Airway patent. NECK: Trachea midline. No JVD or lymphadenopathy. Supple, nontender, no meningeal signs. CARDIOVASCULAR: Regular rate and rhythm without murmurs, gallops, or rubs. RESPIRATORY: Clear to auscultation. Breath sounds equal bilaterally. No wheezes , rales, or rhonchi. GASTROINTESTINAL: Abdomen soft, non-tender, nondistended. No hepato-splenomegaly , or palpable masses. No guarding. MUSCULOSKELETAL: Extremities without clubbing, cyanosis, or edema. No joint tenderness, effusion, or edema noted. No calf tenderness. Negative Homans sign bilaterally. NEUROLOGICAL: Awake and alert. Cranial nerves II through XII intact. Motor and sensory grossly within normal limits. Five out of 5 muscle strength in all muscle groups. Normal speech. Medications and IVs Current Medications Medications (Trade) Dose Ordered Sig/Pat Route Start Time Stop Time Status Last Admin Sodium Chloride 1,000 ml @ 100 mls/hr Q10H IV 02/26/17 17:00 02/26/17 20:58 (Tylenol) 650 mg Q4H PRN PO 02/26/17 16:45 (Zofran Inj) 4 mg Q6H PRN IVP 02/26/17 16:45 (Heparin Inj) 5,000 units Q8H SQ 02/26/17 17:00 02/26/17 17:00 (Narcan Inj) 0.4 mg UNSCH PRN IV PUSH 02/26/17 16:45 (Alissa-Colace) 1 tab BID PO 02/26/17 21:00 (Milk Of Magnesia Liq) 30 ml Q12H PRN PO 02/26/17 16:45 (Senokot) 17.2 mg Q12H PRN PO 02/26/17 16:45 (Dulcolax Supp) 10 mg DAILY PRN RECTAL 02/26/17 16:45 (Lactulose Liq) 30 ml DAILY PRN PO 02/26/17 16:45 Pharmacy Profile Note 0 ml @ 0 mls/hr UNSCH OTHER 02/26/17 16:45 (Ultram) 50 mg Q6H PRN PO 02/26/17 16:45 02/26/17 18:54 Vancomycin HCl 1000 mg/Sodium Chloride 250 ml @ 250 mls/hr Q8HR IV 02/26/17 22:00 02/27/17 06:21 Miscellaneous Information SPECIFIC LAB TO BE DRAWN:[facility]... ONCE ONCE .XX 02/27/17 13:45 02/27/17 13:46 (Habitrol 14 Mg Patch.24 Hr) 1 patch DAILY T-DERMAL 02/27/17 09:00 Miscellaneous Information 1 DAILY T-DERMAL 02/27/17 09:00 Multivitamins 10 ml/Folic Acid 1 mg/Sodium Chloride 510.2 ml @ 125 mls/hr Q24H IV 02/26/17 20:00 03/03/17 19:59 02/26/17 20:57 Thiamine HCl 100 mg/Sodium Chloride 101 ml @ 100 mls/hr Q24H IV 02/26/17 19:30 02/28/17 20:31 02/27/17 03:36 (Vitamin B1) 100 mg DAILY PO 03/01/17 09:00 (Romazicon Inj) 0.2 mg Q1M PRN IV PUSH 02/26/17 18:30 (Ativan) 1 mg Q4H PRN PO 02/26/17 18:30 (Ativan Inj) 1 mg Q4H PRN IV PUSH 02/26/17 18:30 (Ativan) 2 mg Q2H PRN PO 02/26/17 18:30 (Ativan Inj) 2 mg Q2H PRN IV PUSH 02/26/17 18:30 (Ativan Inj) 2 mg Q1H PRN IV PUSH 02/26/17 18:30 (Ativan Inj) 2 mg Q15M PRN IV PUSH 02/26/17 18:30 Clindamycin/ Sodium Chloride 50 ml @ 100 mls/hr Q8H IV 02/26/17 21:00 02/27/17 05:32 A/P Assessment and Plan 1. Facial Cellulitis/Angioedema given Vancomycin will add Clindamycin and follow blood cultures -Neck CT: Prominent soft tissue swelling of the anterior and right side of the mandible without radiopaque foreign body or bony abnormality. Large lymph nodes in the right submandibular and right jugular chains. -Chest x-ray: Negative exam Improving. blood culture negative in one day, continue present care. 2. Polysubstance Abuse UDS taken yesterday was positive for Opiates, Amphetamines, Cocaine and Marijuana, CIWA protocol, Nicotine patch. 3. History of MRSA infection will need isolation. 4. Hepatitis C/Liver dysfunction. DVT prophylaxis with Heparin Code Status Full code. Discussed Condition With patient and Nurse. Discharge Planning Expected for tomorrow in am. Tee Aguila MD Feb 27, 2017 09:40
[2017-02-27] MEDS ORDERED: POTASSIUM CHLORIDE 20 MEQ CONTROLLED RELEASE TAB PO ONE (10:00)
[2017-02-27] MEDS: DOCUSATE SODIUM 50 MG/SENNA 8.6 MG TAB PO SCH ×2 (10:16→20:25)
[2017-02-27] MEDS: NICOTINE 14 MG/24 HR PATCH T-DERMAL SCH (10:17)
[2017-02-27] MEDS ORDERED: PHARMACY ORDERED LAB ONE (13:45)
[2017-02-27] MEDS: traMADol HCL 50 MG TAB PO PRN (20:26)
[2017-02-27] MEDS: MULTIVITAMIN INJ 10 ML, FOLIC ACID INJ 1 MG in SODIUM CHLORID 0.9% 500 ML INJ 500 ML IV SCH (20:45)
[2017-02-27] MEDS ORDERED: VANCOMYCIN INJ 1,500 MG in SODIUM CHLORID 0.9% 500 ML INJ 500 ML IV SCH (22:00)
[2017-02-28] MEDS: HEPARIN SODIUM - SQ 10,000 UNITS/ML VIAL SQ SCH ×2 (01:00→09:21)
[2017-02-28 01:14] VITALS: BP 128/67; PULSE 80; RESP 18; TEMP 98.9; O2SAT 99
[2017-02-28] MEDS: CLINDAMYCIN 600 MG PREMIX 50 ML IV SCH (05:28)
[2017-02-28 05:48] VITALS: BP 132/80; PULSE 64; RESP 20; TEMP 97.5; O2SAT 98
[2017-02-28] MEDS: SODIUM CHLOR 0.9% 1000 ML INJ 1,000 ML IV SCH ×2 (06:00→09:00)
[2017-02-28 07:38] VITALS: BP 136/82; PULSE 67; RESP 18; TEMP 98.2; O2SAT 100
--- NOTE | 2017-02-28 08:46 | HHI.PR ---
Subjective Remarks this is a pleasant 36 y/o Male who was admitted yesterday by the Residency program due to lower lip swelling, with diagnosis of Facial Cellulitis/Angioedema, the patient states this started three days ago now with purulent drainage, he states he is pretty healthy and is taking pain medicine given here, he denies any fevers, chills, shortness of breath, chest pain, or NVD. He denies any facial trauma, dental problems, or neck pain. He has an extensive substance abuse history as documented below in the social history. seen in his bedroom, no other complaint. he signed AMA yesterday and came back today. 02/27: Seen in his bedroom, improving fast will follow in am tomorrow if continue improving his condition will discharge with Clindamycin, blood culture negative in one day. continue Vancomycin and Clindamycin today 02/28: Stable in his bedroom, blood culture negative in 48 hours discontinued Vancomycin, and okay to discharge home discussed with patient about his habit to touch his lips and face all the time, this could be the reason for his actual infection, also will use a lip balm, no nausea, vomit or diarrhea. Objective Vital Signs Date Time Temp Pulse Resp B/P (MAP) Pulse Ox O2 Delivery O2 Flow Rate FiO2 02/28/17 07:38 98.2 67 18 136/82 (100) 100 02/28/17 05:48 97.5 64 20 132/80 (97) 98 02/28/17 01:14 98.9 80 18 128/67 (87) 99 02/27/17 20:26 98.2 75 20 114/67 (83) 99 02/27/17 20:00 83 02/27/17 16:22 99.1 81 18 121/79 (93) 100 02/27/17 15:00 107 02/27/17 12:09 98.7 85 18 137/82 (100) 100 02/27/17 11:00 79 I/O 02/27/17 02/27/17 02/27/17 02/28/17 02/28/17 02/28/17 06:59 14:59 22:59 06:59 14:59 22:59 Intake Total 1291 ml 770 ml 250 ml Balance 1291 ml 770 ml 250 ml Intake Oral 720 ml IV Total 1291 ml 50 ml 250 ml # Voids 2 4 2 # Bowel Movements 1 Result Diagram: 02/27/17 0644 02/27/17 0644 Imaging No imaging studies. Procedures None Other Results Laboratory Tests Test 02/27/17 06:44 02/27/17 13:45 White Blood Count 7.0 TH/MM3 Red Blood Count 4.30 MIL/MM3 Hemoglobin 13.0 GM/DL Hematocrit 36.7 % Mean Corpuscular Volume 85.2 FL Mean Corpuscular Hemoglobin 30.1 PG Mean Corpuscular Hemoglobin Concent 35.3 % Red Cell Distribution Width 14.1 % Platelet Count 302 TH/MM3 Mean Platelet Volume 7.7 FL Neutrophils (%) (Auto) 35.4 % Lymphocytes (%) (Auto) 44.4 % Monocytes (%) (Auto) 11.7 % Eosinophils (%) (Auto) 8.0 % Basophils (%) (Auto) 0.5 % Neutrophils # (Auto) 2.5 TH/MM3 Lymphocytes # (Auto) 3.1 TH/MM3 Monocytes # (Auto) 0.8 TH/MM3 Eosinophils # (Auto) 0.6 TH/MM3 Basophils # (Auto) 0.0 TH/MM3 CBC Comment DIFF FINAL Differential Comment Blood Urea Nitrogen 6 MG/DL Creatinine 0.76 MG/DL Random Glucose 89 MG/DL Calcium Level 8.1 MG/DL Sodium Level 144 MEQ/L Potassium Level 3.6 MEQ/L Chloride Level 111 MEQ/L Carbon Dioxide Level 28.3 MEQ/L Anion Gap 5 MEQ/L Estimat Glomerular Filtration Rate 115 ML/MIN Vancomycin Level Trough 11.5 MCG/ML Objective Remarks GENERAL: This is a well-nourished, well-developed patient, in no apparent distress. HEAD: Atraumatic. Normocephalic. No temporal or scalp tenderness. EYES: Pupils equal round and reactive. Extraocular motions intact. No scleral icterus. No injection or drainage. ENT: lips with edema but improved, also scaly lesions, with crusted blood, but no purulent tissue found any more. NECK: Trachea midline. No JVD or lymphadenopathy. Supple, nontender, no meningeal signs. CARDIOVASCULAR: Regular rate and rhythm without murmurs, gallops, or rubs. RESPIRATORY: Clear to auscultation. Breath sounds equal bilaterally. No wheezes , rales, or rhonchi. GASTROINTESTINAL: Abdomen soft, non-tender, nondistended. No hepato-splenomegaly , or palpable masses. No guarding. MUSCULOSKELETAL: Extremities without clubbing, cyanosis, or edema. No joint tenderness, effusion, or edema noted. No calf tenderness. Negative Homans sign bilaterally. NEUROLOGICAL: Awake and alert. Cranial nerves II through XII intact. Medications and IVs Current Medications Medications (Trade) Dose Ordered Sig/Pat Route Start Time Stop Time Status Last Admin Sodium Chloride 1,000 ml @ 100 mls/hr Q10H IV 02/26/17 17:00 02/26/17 20:58 (Tylenol) 650 mg Q4H PRN PO 02/26/17 16:45 (Zofran Inj) 4 mg Q6H PRN IVP 02/26/17 16:45 (Heparin Inj) 5,000 units Q8H SQ 02/26/17 17:00 02/27/17 17:00 (Narcan Inj) 0.4 mg UNSCH PRN IV PUSH 02/26/17 16:45 (Alissa-Colace) 1 tab BID PO 02/26/17 21:00 02/27/17 10:16 (Milk Of Magnesia Liq) 30 ml Q12H PRN PO 02/26/17 16:45 (Senokot) 17.2 mg Q12H PRN PO 02/26/17 16:45 (Dulcolax Supp) 10 mg DAILY PRN RECTAL 02/26/17 16:45 (Lactulose Liq) 30 ml DAILY PRN PO 02/26/17 16:45 Pharmacy Profile Note 0 ml @ 0 mls/hr UNSCH OTHER 02/26/17 16:45 (Ultram) 50 mg Q6H PRN PO 02/26/17 16:45 02/27/17 20:26 (Habitrol 14 Mg Patch.24 Hr) 1 patch DAILY T-DERMAL 02/27/17 09:00 02/27/17 10:17 Miscellaneous Information 1 DAILY T-DERMAL 02/27/17 09:00 Multivitamins 10 ml/Folic Acid 1 mg/Sodium Chloride 510.2 ml @ 125 mls/hr Q24H IV 02/26/17 20:00 03/03/17 19:59 02/27/17 20:45 Thiamine HCl 100 mg/Sodium Chloride 101 ml @ 100 mls/hr Q24H IV 02/26/17 19:30 02/28/17 20:31 02/27/17 23:53 (Vitamin B1) 100 mg DAILY PO 03/01/17 09:00 (Romazicon Inj) 0.2 mg Q1M PRN IV PUSH 02/26/17 18:30 (Ativan) 1 mg Q4H PRN PO 02/26/17 18:30 (Ativan Inj) 1 mg Q4H PRN IV PUSH 02/26/17 18:30 (Ativan) 2 mg Q2H PRN PO 02/26/17 18:30 (Ativan Inj) 2 mg Q2H PRN IV PUSH 02/26/17 18:30 (Ativan Inj) 2 mg Q1H PRN IV PUSH 02/26/17 18:30 (Ativan Inj) 2 mg Q15M PRN IV PUSH 02/26/17 18:30 Clindamycin/ Sodium Chloride 50 ml @ 100 mls/hr Q8H IV 02/26/17 21:00 02/28/17 05:28 Vancomycin HCl 1500 mg/Sodium Chloride 515 ml @ 250 mls/hr Q12H IV 02/27/17 22:00 02/27/17 21:04 Miscellaneous Information SPECIFIC LAB TO BE DRAWN:VANCOMYCIN TROUGH DATE TO... ONCE ONCE .XX 03/01/17 09:45 03/01/17 09:46 A/P Assessment and Plan 1. Facial Cellulitis/Angioedema given Vancomycin will add Clindamycin and follow blood cultures -Neck CT: Prominent soft tissue swelling of the anterior and right side of the mandible without radiopaque foreign body or bony abnormality. Large lymph nodes in the right submandibular and right jugular chains. -Chest x-ray: Negative exam Improving. blood culture negative in 48 hours removed Vancomycin will continue Clindamycin 300 mg TID for 10 days, 2. Polysubstance Abuse UDS taken yesterday was positive for Opiates, Amphetamines, Cocaine and Marijuana, CIWA protocol, Nicotine patch. strongly recommended to stop this behavior. 3. Hepatitis C/Liver dysfunction. DVT prophylaxis with Heparin Code Status Full code. Discussed Condition With patient and Nurse Miss Cano, discussed with patient about his habit to touch his lips all the time and his face this may produce patient actual infection, also his dry lips will need Lip balm was ordered. Discharge Planning discharge home now. Tee Aguila MD Feb 28, 2017 08:46
[2017-02-28] MEDS: REMOVE OLD PATCH T-DERMAL SCH (09:00)
[2017-02-28] MEDS: DOCUSATE SODIUM 50 MG/SENNA 8.6 MG TAB PO SCH (09:00)
[2017-02-28] MEDS: NICOTINE 14 MG/24 HR PATCH T-DERMAL SCH (09:19)
[2017-02-28] MEDS ORDERED: CLIN300C5 PO (10:29)
[2017-02-28] MEDS ORDERED: NICO14DI23 T-DERMAL (10:29)
[2017-02-28] MEDS ORDERED: THIA100 PO (10:29)
--- NOTE | 2017-02-28 10:38 | HHI.DS ---
Discharge Summary Admission Date Feb 26, 2017 at 16:44 Discharge Date: Feb 28, 2017 Admitting Diagnosis facial infection/angioedema (1) Angioedema ICD Code: T78.3XXA - Angioneurotic edema, initial encounter Diagnosis: Principal Status: Acute (2) Facial infection ICD Code: L08.9 - Local infection of the skin and subcutaneous tissue, unspecified Diagnosis: Principal Status: Acute Procedures None Brief History - From Admission this is a pleasant 36 y/o Male who was admitted yesterday by the Residency program due to lower lip swelling, with diagnosis of Facial Cellulitis/Angioedema, the patient states this started three days ago now with purulent drainage, he states he is pretty healthy and is taking pain medicine given here, he denies any fevers, chills, shortness of breath, chest pain, or NVD. He denies any facial trauma, dental problems, or neck pain. He has an extensive substance abuse history as documented below in the social history. seen in his bedroom, no other complaint. he signed AMA yesterday and came back today. CBC/BMP: 02/27/17 0644 02/27/17 0644 Significant Findings Laboratory Tests Test 02/27/17 06:44 02/27/17 13:45 Red Blood Count 4.30 MIL/MM3 (4.50-5.90) Hematocrit 36.7 % (39.0-51.0) Lymphocytes (%) (Auto) 44.4 % (9.0-44.0) Monocytes (%) (Auto) 11.7 % (0.0-8.0) Eosinophils (%) (Auto) 8.0 % (0.0-4.0) Eosinophils # (Auto) 0.6 TH/MM3 (0-0.4) Blood Urea Nitrogen 6 MG/DL (7-18) Calcium Level 8.1 MG/DL (8.5-10.1) Chloride Level 111 MEQ/L (98-107) Vancomycin Level Trough 11.5 MCG/ML (5.0-10.0) Imaging No imaging studies performed. PE at Discharge GENERAL: This is a well-nourished, well-developed patient, in no apparent distress. HEAD: Atraumatic. Normocephalic. No temporal or scalp tenderness. EYES: Pupils equal round and reactive. Extraocular motions intact. No scleral icterus. No injection or drainage. ENT: lips with edema but improved, also scaly lesions, with crusted blood, but no purulent tissue found any more. NECK: Trachea midline. No JVD or lymphadenopathy. Supple, nontender, no meningeal signs. CARDIOVASCULAR: Regular rate and rhythm without murmurs, gallops, or rubs. RESPIRATORY: Clear to auscultation. Breath sounds equal bilaterally. No wheezes , rales, or rhonchi. GASTROINTESTINAL: Abdomen soft, non-tender, nondistended. No hepato-splenomegaly , or palpable masses. No guarding. MUSCULOSKELETAL: Extremities without clubbing, cyanosis, or edema. No joint tenderness, effusion, or edema noted. No calf tenderness. Negative Homans sign bilaterally. NEUROLOGICAL: Awake and alert. Cranial nerves II through XII intact. Hospital Course this is a pleasant 36 y/o Male who was admitted yesterday by the Residency program due to lower lip swelling, with diagnosis of Facial Cellulitis/Angioedema, the patient states this started three days ago now with purulent drainage, he states he is pretty healthy and is taking pain medicine given here, he denies any fevers, chills, shortness of breath, chest pain, or NVD. He denies any facial trauma, dental problems, or neck pain. He has an extensive substance abuse history as documented below in the social history. seen in his bedroom, no other complaint. he signed AMA yesterday and came back today. 02/27: Seen in his bedroom, improving fast will follow in am tomorrow if continue improving his condition will discharge with Clindamycin, blood culture negative in one day. continue Vancomycin and Clindamycin today 02/28: Stable in his bedroom, blood culture negative in 48 hours discontinued Vancomycin, and okay to discharge home discussed with patient about his habit to touch his lips and face all the time, this could be the reason for his actual infection, also will use a lip balm, no nausea, vomit or diarrhea. Assessment and Plan 1. Facial Cellulitis/Angioedema given Vancomycin will add Clindamycin and follow blood cultures -Neck CT: Prominent soft tissue swelling of the anterior and right side of the mandible without radiopaque foreign body or bony abnormality. Large lymph nodes in the right submandibular and right jugular chains. -Chest x-ray: Negative exam Improving. blood culture negative in 48 hours removed Vancomycin will continue Clindamycin 300 mg TID for 10 days, 2. Polysubstance Abuse UDS taken yesterday was positive for Opiates, Amphetamines, Cocaine and Marijuana, CIWA protocol, Nicotine patch. strongly recommended to stop this behavior. 3. Hepatitis C/Liver dysfunction. DVT prophylaxis with Heparin Code Status Full code. Discussed Condition With patient and Nurse Miss Cano, discussed with patient about his habit to touch his lips all the time and his face this may produce patient actual infection, also his dry lips will need Lip balm was ordered. Discharge Planning discharge home now. Pt Condition on Discharge: Good Discharge Disposition: Discharge Home Discharge Time: <= 30 minutes Discharge Instructions DIET: Follow Instructions for: As Tolerated, No Restrictions Activities you can perform: Regular-No Restrictions Tee Aguila MD Feb 28, 2017 10:38
[2017-02-28] MEDS ORDERED: DIMETHICONE/OXYBENZONE/PADMIATE LIP BALM 4.25 GM TOPICAL PRN (10:45)
[2017-03-01] MEDS ORDERED: THIAMINE HCL 100 MG TAB PO SCH (09:00)
[2017-03-01] MEDS ORDERED: PHARMACY ORDERED LAB ONE (09:45)
== END 2017-02-28 11:20 | disposition home or self-care (01) | DRG 603 ==
LOC: NEPD 12:35 → INTOOBSV 15:34 → NEDA 15:34 → OBSVTOIN 16:44 → N05B 17:00
PROVIDERS: ADMIT Internal Medicine; ATTEND Internal Medicine
DX: L03.211 Cellulitis of face (principal); K76.89 Other specified diseases of liver; T78.3XXA Angioneurotic edema, initial encounter; B19.20 Unspecified viral hepatitis C without hepatic coma; F19.10 Other psychoactive substance abuse, uncomplicated; F17.210 Nicotine dependence, cigarettes, uncomplicated; Z86.14 Personal history of Methicillin resistant Staphylococcus aureus infection
CPT/HCPCS: 80048; 80202; 85025; 87040; 96365; J1644; J3370; J3411; J7030; J7040; J7050